=== PATIENT | female | born 1985 | race Caucasian/White ===

== ENCOUNTER 2020-10-18 09:20 | Emergency (ER) | payer OTHER ==
[2020-10-18] MEDS ORDERED: MOTRIN600 MG PO (12:14)
== END 2020-10-18 12:41 | disposition home or self-care (01) ==
LOC: FER 09:20
DX: S83.91XA Sprain of unspecified site of right knee, initial encounter (principal); F17.200 Nicotine dependence, unspecified, uncomplicated; W10.9XXA Fall (on) (from) unspecified stairs and steps, initial encounter; X50.1XXA Overexertion from prolonged static or awkward postures, initial encounter; Y92.009 Unspecified place in unspecified non-institutional (private) residence as the place of occurrence of the external cause
CPT/HCPCS: 73564